=== PATIENT | male | born 1970 | race Caucasian/White ===

== ENCOUNTER 2016-05-24 19:52 | Inpatient (IN) | payer MEDICAID, OTHER ==
[~2016-05-24] VITALS: Ht 170.2 cm; Wt 78.0 kg
--- NOTE | 2016-05-25 00:57 | RADRPT ---
AMENDMENT: 05/25/2016 1:00:28 AM Ramesh Conley MD Early ischemic injury may be occult on CT imaging and diffusion-weighted MRI may be considered for f urther evaluation. PROCEDURE: CT Brain without contrast. CLINICAL INDICATION: Facial paralysis and headache. TECHNIQUE: A CT of the brain was performed on a multidetector CT scanner utilizing axial imaging f rom the skull base through the vertex without IV contrast. Multiplanar reformatted images were made . The CTDIvol is 45.0 mGy and the DLP is 720.23 mGycm. One of the following dose reduction techn iques were utilized: Automated dense exposure control, adjustment of the mA and/or kV according to patient's size, use of iterative reconstruction technique. COMPARISON: None FINDINGS: There is no intracranial hemorrhage, edema, mass effect, or midline shift. No extra-axial fluid col lection is seen. The brain parenchyma is normal in attenuation and morphology with preservation of arzola white differe ntiation and age appropriate size of the ventricles and subarachnoid spaces. Incidental note is made of punctate. Desiccation of the maternal superior frontal sulcus likely representing small area of remote infection or punctate vascular calcification. The basal cisterns are patent. The orbits, posterior fossa contents, and brain stem are unremarkable The visualized paranasal sinuses and osseous structures are grossly unremarkable. IMPRESSION: 1. No evidence of acute intracranial pathology. 2. The brain is normal in appearance. RPTAT:AAJJ Physician Ashia Date Time Electronically viewed and signed by Physician Ashia on 05/25/2016 01:00 JON/
--- NOTE | 2016-05-25 00:59 | RADRPT ---
PROCEDURE: XR Chest. CLINICAL INDICATION: Possible Stroke TECHNIQUE: Single AP portable chest COMPARISON: None FINDINGS: The cardiomediastinal silhouette is within normal limits. The lungs are clear without pleural effus ion or focal consolidation. No pneumothorax. The osseous structures and soft tissues are unremarkab le. IMPRESSION: No evidence for active cardiopulmonary disease. RPTAT:AAJJ Physician Ashia Date Time Electronically viewed and signed by Angela Conley Physician on 05/25/2016 00:59 JON/
[2016-05-25] MEDS ORDERED: LORAZEPAM 2 MG INJ IV ONE (01:00)
[2016-05-25 01:19] LABS: BASOPHIL # 0.1 10^3/ul (0.0-0.1); BASOPHILS % 0.4 % (0.0-2.0); EOSINOPHILS # 0.2 10^3/ul (0.0-0.5); EOSINOPHILS % 1.6 % (0.0-7.0); HEMATOCRIT 41.7 % (42.0-52.0); HEMOGLOBIN 14.1 g/dl (14.0-18.0); LYMPHOCYTES # 3.5 10^3/ul (0.8-2.9); LYMPHOCYTES % 29.9 % (15.0-51.0); MEAN CORPUSCULAR HEMOGLOBIN 30.3 pg (29.0-33.0); MEAN CORPUSCULAR HGB CONC 33.8 g/dl (32.0-37.0); MEAN CORPUSCULAR VOLUME 89.7 fl (82.0-101.0); MEAN PLATELET VOLUME 8.5 fl (7.4-10.4); MONOCYTE # 0.9 10^3/ul (0.3-0.9); MONOCYTES % 7.5 % (0.0-11.0); NEUTROPHIL # 7.1 10^3/ul (1.6-7.5); NEUTROPHILS % 60.6 % (39.0-77.0); PLATELET COUNT 247 10^3/UL (140-440); RED BLOOD COUNT 4.66 10^6/ul (4.70-6.10); RED CELL DISTRIBUTION WIDTH 13.3 % (11.5-14.5); UNCORRECTED WBC 11.7 10^3/ul (4.8-10.8); WHITE BLOOD COUNT 11.7 10^3/ul (4.8-10.8)
[2016-05-25 01:25] LABS: ALBUMIN 4.4 g/dl (3.3-4.9); CHLORIDE 102 mmol/L (97-110); CONDITION 1; INR 0.91; POTASSIUM 3.9 mmol/L (3.5-5.1); PROTIME 12.2 Sec (12.2-14.2); SODIUM 142 mmol/L (135-144)
[2016-05-25 01:26] LABS: PARTIAL THROMBOPLASTIN TIME 32.8 Sec (25.0-35.0)
[2016-05-25 01:27] LABS: CREATININE 0.79 mg/dl (0.61-1.24)
[2016-05-25 01:28] LABS: ALANINE AMINOTRANSFERASE 42 IU/L (13-69); ALBUMIN/GLOBULIN RATIO 1.29; ALKALINE PHOSPHATASE 82 IU/L (42-121); ANION GAP 21 (8-16); ASPARTATE AMINO TRANSFERASE 36 IU/L (15-46); BILIRUBIN,INDIRECT 0.1 mg/dl (0-1.1); BILIRUBIN,TOTAL 0.1 mg/dl (0.2-1.3); BLOOD UREA NITROGEN 12 mg/dl (7-20); CALCIUM 9.3 mg/dl (8.4-10.2); CARBON DIOXIDE 23 mmol/L (21-31); GLUCOSE 138 mg/dl (70-220); TOTAL PROTEIN 7.8 g/dl (6.1-8.1)
[2016-05-25 01:35] LABS: ADD UMIC NO; URINE BILIRUBIN (Dip) NEGATIVE (NEGATIVE); URINE BLOOD (Dip) NEGATIVE (NEGATIVE); URINE COLOR LT. YELLOW (YELLOW); URINE GLUCOSE (Dip) NEGATIVE (NEGATIVE); URINE KETONES (Dip) NEGATIVE (NEGATIVE); URINE LEUKOCYTE ESTERASE (Dip) NEGATIVE (NEGATIVE); URINE NITRITE (Dip) NEGATIVE (NEGATIVE); URINE TOTAL PROTEIN (Dip) NEGATIVE (NEGATIVE); URINE UROBILINOGEN (Dip) 0.2 E.U./dL (0.1-1.0)
[2016-05-25 01:40] LABS: TROPONIN-I < 0.010 ng/ml (0.00-0.12)
[2016-05-25 02:06] LABS: BARBITURATES NEGATIVE (NEGATIVE); BENZODIAZEPINES NEGATIVE (NEGATIVE); CANNABINOIDS NEGATIVE (NEGATIVE); COCAINE NEGATIVE (NEGATIVE); OPIATES NEGATIVE (NEGATIVE)
[2016-05-25] MEDS ORDERED: ASPIRIN 325 MG TAB PO ONE (02:30)
--- NOTE | 2016-05-25 03:24 | ERA ---
ER Documentation Chief Complaint Date/Time DATE: 05/25/16 TIME: 03:23 Chief Complaint tingling R face, diziness and bl leg weakness HPI This is a 45-year-old male with tingling right face and dizziness. Patient said he had a facial droop and dysarthria that lasted approximately half an hour. He was seen in urgent care and told to come immediately to the ER for strokelike symptoms. No previous history of stroke. No chest pain. No nausea no vomiting no fevers no chills. No other current complaints. ROS All systems reviewed and are negative except as per history of present illness. Allergies Allergies: Coded Allergies: No Known Allergy (Unverified , 05/25/16) PMhx/Soc History of Surgery: Yes (right inguinal hernia repair, right thumb) Anesthesia Reaction: No Hx Neurological Disorder: No Hx Respiratory Disorders: No Hx Cardiac Disorders: No Hx Psychiatric Problems: No Hx Miscellaneous Medical Probl: Yes (prediabetic) Hx Alcohol Use: Yes (quit, last drink 04/2016) Hx Substance Use: Yes (marijuana- "quit") Hx Tobacco Use: Yes Smoking Status: Current some day smoker Physical Exam Vitals Vital Signs Date Time Temp Pulse Resp B/P Pulse Ox O2 Delivery O2 Flow Rate FiO2 05/25/16 01:11 75 16 125/77 97 Room Air 05/24/16 20:04 98.0 98 20 148/88 97 Physical Exam Const: [] Head: Atraumatic Eyes: Normal Conjunctiva ENT: Normal External Ears, Nose and Mouth. Neck: Full range of motion..~ No meningismus. Resp: Clear to auscultation bilaterally Cardio: Regular rate and rhythm, no murmurs Abd: Soft, non tender, non distended. Normal bowel sounds Skin: No petechiae or rashes Back: No midline or flank tenderness Ext: No cyanosis, or edema Neur: Awake and alert Psych: Normal Mood and Affect Result Diagram: 05/25/16 0038 05/25/168 Results 24 hrs Laboratory Tests Test 05/25/16 00:38 05/25/16 01:08 05/25/16 01:27 Activated Partial Thromboplast Time 32.8Sec Alanine Aminotransferase (ALT/SGPT) 42IU/L Albumin 4.4g/dl Albumin/Globulin Ratio 1.29 Alkaline Phosphatase 82IU/L Anion Gap 21 Aspartate Amino Transf (AST/SGOT) 36IU/L Basophils # 0.110^3/ul Basophils % 0.4% Blood Urea Nitrogen 12mg/dl Calcium Level 9.3mg/dl Carbon Dioxide Level 23mmol/L Chloride Level 102mmol/L Creatinine 0.79mg/dl Direct Bilirubin 0.00mg/dl Eosinophils # 0.210^3/ul Eosinophils % 1.6% Globulin 3.40g/dl Glucose Level 138mg/dl Hematocrit 41.7% Hemoglobin 14.1g/dl INR International Normalized Ratio 0.91 Indirect Bilirubin 0.1mg/dl Lymphocytes # 3.510^3/ul Lymphocytes % 29.9% Mean Corpuscular Hemoglobin 30.3pg Mean Corpuscular Hemoglobin Concent 33.8g/dl Mean Corpuscular Volume 89.7fl Mean Platelet Volume 8.5fl Monocytes # 0.910^3/ul Monocytes % 7.5% Neutrophils # 7.110^3/ul Neutrophils % 60.6% Nucleated Red Blood Cells # 0.010^3/ul Nucleated Red Blood Cells % 0.0/100WBC Platelet Count 09403^3/UL Potassium Level 3.9mmol/L Prothrombin Time 12.2Sec Prothrombin Time Ratio 1.0 Red Blood Count 4.6610^6/ul Red Cell Distribution Width 13.3% Sodium Level 142mmol/L Total Bilirubin 0.1mg/dl Total Protein 7.8g/dl Troponin I < 0.010ng/ml White Blood Count 11.710^3/ul Bedside Glucose 106mg/dL Urine Amphetamines Screen NEGATIVE Urine Barbiturates NEGATIVE Urine Benzodiazepines Screen NEGATIVE Urine Bilirubin NEGATIVE Urine Cannabinoids NEGATIVE Urine Clarity CLEAR Urine Cocaine Screen NEGATIVE Urine Color LT. YELLOW Urine Glucose NEGATIVE% Urine Hemoglobin NEGATIVE Urine Ketones NEGATIVE Urine Leukocyte Esterase NEGATIVE Urine Nitrite NEGATIVE Urine Opiates Screen NEGATIVE Urine Specific [place] 1.015 Urine Total Protein NEGATIVE Urine Urobilinogen 0.2 E.U./dL Urine pH 7.0 Current Medications Medications (Trade) Dose Ordered Sig/Monique Route PRN Reason Start Time Stop Time Status Last Admin Dose Admin Lorazepam (Ativan) 1 mg ONCE ONCE IV 05/25/16 01:00 05/25/16 01:01 DC 05/25/16 00:59 Aspirin (Aspirin) 325 mg ONCE ONCE PO 05/25/16 02:30 05/25/16 02:31 DC Procedures/MDM Chest X-ray 1V Interpreted by me: Soft Tissue: No acute abnormalities Bones: No acute abnormalities Mediastinum/Cardiac Silhouette/Lungs: No acute abnormalities EKG: Rate/Rhythm: Normal Sinus Rhythm QRS, ST, T-waves: No changes consistent w/ acute ischemia Impression: No evidence of ischemia or arrhythmia CT of the head as well as negative. Medical decision makin-year-old male with strokelike symptoms of since resolved. At this point a TIA must be considered. Patient will be admitted to telemetry to the hospitalist. Departure Diagnosis: Primary Impression: TIA (transient ischemic attack) Qualified Code: G45.9 - Transient cerebral ischemia, unspecified type Condition: Serious TANYA GONSALVES May 25, 2016 03:24
[2016-05-25] MEDS ORDERED: morphine 2 MG INJ IV PRN (09:00)
[2016-05-25] MEDS ORDERED: ONDANSETRON 4 MG INJ IV PRN (09:00)
[2016-05-25] MEDS ORDERED: ACETAMINOPHEN 325 MG TAB PO PRN (09:00)
[2016-05-25] MEDS ORDERED: LORAZEPAM 2 MG INJ IV PRN (09:00)
[2016-05-25] MEDS ORDERED: NACL 0.9% 3 ML SYG IV SCH (09:00)
[2016-05-25] MEDS: ASPIRIN 81 MG TAB PO SCH (09:33)
[2016-05-25] MEDS: ENOXAPARIN 40 MG/0.4 ML SYG SC SCH (09:33)
[2016-05-25 10:20] VITALS: TEMP 98.7
--- NOTE | 2016-05-25 10:40 | RADRPT ---
PROCEDURE: US Carotids. CLINICAL INDICATION: bruit , right facial numbness TECHNIQUE: Multiple sonographic of the carotid bifurcation region and vertebral arteries were obta ined utilizing arzola scale, duplex and color-flow imaging. The images were reviewed on a PACS worksta tion. COMPARISON: No prior studies are available for comparison. FINDINGS: Evaluation of the right carotid bifurcation region reveals no significant calcific atherosclerotic d isease. Evaluation of the left carotid bifurcation region reveals no significant calcific atherosclerotic di sease. There is antegrade flow within the vertebral arteries bilaterally. RIGHT CAROTID MEASUREMENTS: Common Carotid Whhokc484.3 (cm/sec) Internal Carotid Artery - lixsxhsw68.4 (cm/sec) Internal Carotid Artery - mid90.1 (cm/sec) Internal Carotid Artery - jpyqkk36.8 (cm/sec) Internal Carotid/Common Carotid0.81 LEFT CAROTID MEASUREMENTS: Common Carotid Toepnu068.8 (cm/sec) Internal Carotid Artery - amhocvlu01.9 (cm/sec) Internal Carotid Artery - mid60.5 (cm/sec) Internal Carotid Artery - kmgyos90.5 (cm/sec) Internal Carotid/Common Carotid0.78 RPTAT: AA IMPRESSION: No evidence for hemodynamically significant stenosis in the bilateral internal carotid arteries - va lidated velocity measurements with angiographic measurements, velocity criteria are extrapolated fro m diameter data as defined by the Society of Radiologists in Ultrasound Consensus Conference Radiolo gy 2003; 229;340-346. This study does indirectly reference the measurement of the distal ICA diamet er as the denominator for stenosis measurement. Normal antegrade flow in the vertebral arteries bilaterally. .Jesse Balderas MD, Date Time Electronically viewed and signed by .Jesse Balderas MD, MD on 05/25/2016 10:40 .S/
--- NOTE | 2016-05-25 14:14 | RADRPT ---
Echocardiogram Report Patient Name: CJ SILVA Gender: Male Date: 1970 Study Date: 25-May-2016 Appointment Manager: Gustavo Rivera RDCS Location: [facility] Ref. Physician: TANYA CONNELL Quality: Good Procedures: Transthoracic echocardiogram with complete 2D, M-Mode, and doppler examination. Indications: Transient Ischemic Attack. 2D/M Mode Doppler Measurement Value Normal Ranges Measurement Value Normal Ranges LVIDd 2D 4.9 3.5 - 5.6 cm AV Peak Joel 1.0 m/sec LVIDs 2D 3.3 2.1 - 4.1 cm AV Peak PG 4.0 mmHg FS 2D 33.5 % LVOT Peak Joel 1.1 m/sec LVPWd 2D 0.8 0.6 - 1.1 cm LVOT Peak PG 5.0 mmHg IVSd 2D 0.7 0.6 - 1.1 cm MV E Peak Joel 0.6 m/sec IVS/LVPW 2D 0.8 MV A Peak Joel 0.5 m/sec AoR Diam 2D 3.3 2.0 - 3.7 cm MV E/A 1.1 LA/Ao 2D 1 0 - 1 MV Decel Time 173 msec EDV 2D 121.0 cm3 MV E/A 1.1 ESV 2D 35.6 cm3 TR Peak Joel 2.3 m/sec LA Dimen 2D 3.3 2.3 - 4.0 cm TR Peak PG 22.0 mmHg RVSP 30.0 mmHg Findings Left Ventricle: Normal left ventricular systolic function. Normal left ventricular cavity size. Normal left ventricular wall thickness. Ejection fraction is visually estimated at 65 %. Tissue Doppler/Mitral Doppler indices are consistent with impaired relaxation (Stage I diastolic dysfunction). Right Ventricle: Normal right ventricular size. Normal right ventricular systolic function. Left Atrium: The left atrium is normal in size. Right Atrium: The right atrium is normal in size. Mitral Valve: Mitral valve leaflets appear mildly thickened. Mild mitral annular calcification. Trace mitral regurgitation. Aortic Valve: Normal appearance of the aortic valve. No significant aortic stenosis or insufficiency. Tricuspid Valve: Normal appearance of the tricuspid valve. Estimated peak PA systolic pressure 30 mmHg. There is mild tricuspid regurgitation. Pericardium: Normal pericardium with no significant pericardial effusion. Aorta: Normal aortic root. IVC: Normal size and normal respiratory collapse consistent with normal right atrial pressure. Conclusions 1.Normal left ventricular systolic function. Normal left ventricular cavity size. Normal left ventricular wall thickness. Ejection fraction is visually estimated at 65 %. Tissue Doppler/Mitral Doppler indices are consistent with impaired relaxation (Stage I diastolic dysfunction). 2.Normal right ventricular size. Normal right ventricular systolic function. 3.The left atrium is normal in size. 4.The right atrium is normal in size. 5.Estimated peak PA systolic pressure 30 mmHg. There is mild tricuspid regurgitation. 6.No significant aortic stenosis or insufficiency. 7.Trace mitral regurgitation. 8.Normal pericardium with no significant pericardial effusion. Electronically Signed By: Josiah Segovia 25-May-2016 14:12:51 -0800 Patient Name: CJ SILVA Study Date: 25-May-[id number]
[2016-05-25 16:20] VITALS: BP 132/83; PULSE 76; RESP 18; Ht 170.2 cm; Wt 78.0 kg
[2016-05-25 16:47] VITALS: PULSE 82
--- NOTE | 2016-05-25 16:53 | RADRPT ---
PROCEDURE: MRI brain without IV contrast CLINICAL INDICATION: Facial numbness. TECHNIQUE: MRI examination of the brain was performed on a 3T high field MR scanner, following pul se sequences: T1-weighted axial/sagittal, axial/sagittal FLAIR, T2-weighted axial, coronal GRE sequ ence images are made including the diffusion images with ADC map. COMPARISON: CT brain, 05/25/2016. FINDINGS: The ventricles and cerebral sulci are normal in size and morphology. The arzola/white matter differen tiation is well preserved. The diffusion images show no evidence of acute ischemia or recent infarc t. The GRE images show no evidence of hemorrhage. There is no other abnormal intra-axial high or lower signal intensity lesion, suggesting tumor, infa rct, bleeding, av malformation or inflammatory lesion. No subdural or epidural hematoma. The brainstem is normal. The pituitary gland is unremarkable. T he pontomesencephalic angle is normal. The lateral ventricular angle is also normal. The cerebello pontine angle cisterns are clear. There are signal voids of the intracranial central arteries and d ural sinuses indicating patency. The visualized paranasal sinuses, orbits and temporal bones are al so unremarkable. IMPRESSION: 1. Unremarkable MRI brain without IV contrast. RPTAT: GG .Mike Bailon MD, Date Time Electronically viewed and signed by .Mike Bailon MD, on 05/25/2016 16:52 .Y/
--- NOTE | 2016-05-25 17:02 | HP ---
DATE OF ADMISSION: 05/25/2016 TIME SEEN: 4 a.m. CHIEF COMPLAINT: Headache and facial numbness. HISTORY OF PRESENT ILLNESS: The patient is a 45-year-old male with a history of prediabetes, who pr esented to the emergency department for a headache, dizziness and facial numbness and tingling sensa tion. He stated that his symptoms started around 1900 last night. On further questioning, he also reported having had a facial droop and difficulty speaking, which lasted for about an hour. He init ially went to an urgent care clinic where he stated he was found to have an elevated blood pressure and was told to go to the ER for evaluation. When he presented to the ER, blood pressure was /88, heart rate , respiratory rate 20, tem perature 98, oxygen saturation 97% on room air. Brain CT showed no evidence of acute intracranial p athology. Chest x-ray also was negative for any acute processes. He was given aspirin 325 mg x1. As far as his laboratory results are concerned, WBC 11.7, anion gap 21. Otherwise, CBC and CMP are within normal limits. REVIEW OF SYSTEMS: A 12-point review was performed, negative except as mentioned in HPI. PAST MEDICAL HISTORY: As per HPI. PAST SURGICAL HISTORY: Right inguinal hernia repair and the right thumb surgery. SOCIAL HISTORY: He stated he quit drinking last month. He also is an ex-marijuana user. ALLERGIES: NO KNOWN DRUG ALLERGIES. HOME MEDICATIONS: None. PHYSICAL EXAMINATION VITAL SIGNS: Stable. GENERAL: No acute distress, looks comfortable, answering questions appropriately, able to speak in full sentences. HEENT: No obvious head deformity. Pupils react to light. Extraocular muscles intact. CARDIOVASCU LAR: Regular rate and rhythm. No extra sounds. LUNGS: Clear. ABDOMEN: Soft, nontender, nondistended. Positive bowel sounds. EXTREMITIES: No edema. NEUROLOGIC: No focal deficit. There is a slight decreased sensation on the right side of face. LABORATORY DATA: Pertinent positives as mentioned in the HPI. IMAGING: Brain CT and chest x-ray results as mentioned in the HPI. IMPRESSION 1. Transient ischemic attack, need to rule out stroke. 2. Mild leukocytosis. 3. Self-reported history of prediabetes. PLAN: We will admit to telemetry unit. A head CT as mentioned above was negative for any acute processes. Will obtain an MRI of the brain and carotid Doppler ultrasounds as well as a 2D echo. He will be placed on aspirin, statin, and subcutaneous heparin or Lovenox for DVT prophylaxis. We will check A 1c and fasting lipids. His PT/PTT within normal limits. The patient will have physical therapy as well as speech swallow evaluation as needed, but I do not believe that it is warranted at this point . A neurology consult will also be placed as needed. Further workup and management per clinical course. Dictated By: TANYA IVY/TIFFANY Conf#: [id number] DID#: [id number]
[2016-05-25 20:00] VITALS: BP 105/68; RESP 19
[2016-05-25 20:23] VITALS: PULSE 71
[2016-05-25] MEDS ORDERED: ATORVASTATIN 40 MG TAB PO SCH (21:00)
[2016-05-26] VITALS (7 sets, daily range): BP systolic 102–119; BP diastolic 56–73; PULSE 62–80; RESP 18–20
[2016-05-26 07:13] LABS: BASOPHILS % 0.1 % (0.0-2.0); EOSINOPHILS # 0.3 10^3/ul (0.0-0.5); EOSINOPHILS % 3.2 % (0.0-7.0); HEMATOCRIT 43.8 % (42.0-52.0); HEMOGLOBIN 14.6 g/dl (14.0-18.0); LYMPHOCYTES # 3.1 10^3/ul (0.8-2.9); LYMPHOCYTES % 31.9 % (15.0-51.0); MEAN CORPUSCULAR HEMOGLOBIN 30.3 pg (29.0-33.0); MEAN CORPUSCULAR HGB CONC 33.4 g/dl (32.0-37.0); MEAN CORPUSCULAR VOLUME 90.8 fl (82.0-101.0); MEAN PLATELET VOLUME 8.6 fl (7.4-10.4); MONOCYTE # 0.8 10^3/ul (0.3-0.9); MONOCYTES % 8.4 % (0.0-11.0); NEUTROPHIL # 5.4 10^3/ul (1.6-7.5); NEUTROPHILS % 56.4 % (39.0-77.0); PLATELET COUNT 246 10^3/UL (140-440); RED BLOOD COUNT 4.83 10^6/ul (4.70-6.10); RED CELL DISTRIBUTION WIDTH 13.4 % (11.5-14.5); UNCORRECTED WBC 9.6 10^3/ul (4.8-10.8); WHITE BLOOD COUNT 9.6 10^3/ul (4.8-10.8)
[2016-05-26 07:18] LABS: CONDITION 1
[2016-05-26 07:39] LABS: POTASSIUM 4.4 mmol/L (3.5-5.1)
[2016-05-26 07:41] LABS: BILIRUBIN,INDIRECT 0.4 mg/dl (0-1.1); BILIRUBIN,TOTAL 0.4 mg/dl (0.2-1.3); CREATININE 0.82 mg/dl (0.61-1.24)
[2016-05-26 07:42] LABS: ALBUMIN/GLOBULIN RATIO 1.17; CALCIUM 8.9 mg/dl (8.4-10.2); POTASSIUM 4.3 mmol/L (3.5-5.1); TOTAL PROTEIN 7.4 g/dl (6.1-8.1)
[2016-05-26 07:43] LABS: CHOL/HDL RATIO 5.2 RATIO
[2016-05-26 07:45] LABS: CREATININE 0.82 mg/dl (0.61-1.24)
[2016-05-26 07:46] LABS: CALCIUM 8.9 mg/dl (8.4-10.2)
[2016-05-26 08:02] LABS: THYROID STIMULATING HORMONE 1.36 MIU/L (0.465-4.680)
[2016-05-26] MEDS: ASPIRIN 81 MG TAB PO SCH (08:52)
[2016-05-26] MEDS: ENOXAPARIN 40 MG/0.4 ML SYG SC SCH (08:53)
[2016-05-26] MEDS ORDERED: INFLUENZA VIRUS VACCINE 0.5 ML (DISPENSING) IM* ONE (09:00)
--- NOTE | 2016-05-26 10:01 | PDOCDIS ---
Discharge Instructions CONDITION Patient Condition: Good HOME CARE INSTRUCTIONS: Diet Instructions: Regular ACTIVITY: Activity Restrictions: No Restrictions FOLLOW UP/APPOINTMENTS Appointments F/U WITH YOUR PCP IN 1-2 WEEKS ISMAEL MELTON May 26, 2016 10:00
--- NOTE | 2016-05-27 00:23 | DS ---
DATE OF ADMISSION: 05/25/2016 DATE OF DISCHARGE: 05/26/2016 DISCHARGE DIAGNOSES: 1. Right facial numbness and pain, likely secondary to severe anxiety and panic attack, now stable. 2. Anxiety. The patient recommended for relaxation measures, such as meditation and yoga exercise. HOSPITAL COURSE: The patient is a 45-year-old male with history of prediabetes, otherwise no signif icant medical history. The patient presents with facial numbness and headache. He apparently has h ad these symptoms before in the past, but not as severe. It does sound like he has a history of anx iety. The patient had a workup here that showed no signs of a CVA, which was the initial concern. The patient had a carotid Doppler that showed no significant stenosis. Brain MRI was unremarkable. Brain CT was unremarkable. Chest x-ray showed no evidence of any cardiopulmonary disease. The pat ient's A1c was within normal limits at 5.5 and, hence, did not have prediabetes. LDL was also withi n normal limits at 118. His labs were stable. The patient did have a lot of stress and anxiety in his life and this was felt to be secondary to that. He has been told he had panic attacks in the [place]. He was advised that he should get on probiotics and start yoga and meditation exercise. He und erstood. It was felt that he was stable for discharge. On day of discharge, vitals, labs, physical exam were stable. He had no acute complaints. Questions were answered. CONDITION ON DISCHARGE: Stable. DISPOSITION: To home. MEDICATIONS: No new medications prescribed. The patient has no reported home medications. FOLLOWUP: The patient to follow up with PCP in 1 to 2 weeks. Greater than 30 minutes was spent coordinating discharge of patient. Dictated By: ISMAEL MELTON MD BS/NTS Conf#: [id number] DID#: [id number]
== END 2016-05-26 13:07 | disposition home or self-care (01) | DRG 880 ==
LOC: E/R 19:52 → TEL 05-25 02:15
PROVIDERS: ADMIT Internal Medicine; ATTEND Internal Medicine
DX: F41.9 Anxiety disorder, unspecified (principal); R20.0 Anesthesia of skin; R51 Headache
CPT/HCPCS: 36415; 70450; 70551; 71010; 80048; 80053; 80061; 80307; 81003; 82962; 83036; 83735; 84443; 84484; 85025; 85610; 85730; 90686; 92610; 93005; 93306; 93880; 96372; 96374; 97162; J1650; J2060